=== PATIENT | female | born 2000 | race Hispanic/Latino ===

== ENCOUNTER 2020-10-23 16:52 | Emergency (ER) | payer BC, SELFPAY ==
[2020-10-23 17:00] VITALS: BP 130/78; PULSE 73; RESP 20; TEMP 37; O2SAT 100
[2020-10-23 17:31] LABS: Basophils Percent Auto 0.5 % (0.2-1.2); Eosinophils Absolute Auto 0.1 K/mm3 (0-0.3); Hematocrit 40.5 % (37.0-47.0); Hemoglobin 13.6 g/dL (12.0-15.0); Immature Granulocyte Absolute 0.03 K/mm3 (0.00-0.031); Immature Granulocyte Percent A 0.3 % (0-0.5); Lymphocytes Absolute Auto 1.76 K/mm3 (0.9-3.2); Lymphocytes Percent Auto 20.2 % (18.3-44.2); Mean Corpuscular HGB Conc 33.6 g/dl (32-36); Mean Corpuscular Hemoglobin 31.3 pg (26-34); Mean Corpuscular Volume 93.1 fl (80-100); Mean Platelet Volume 8.6 fl (7.4-10.4); Monocytes Absolute Auto 0.5 K/mm3 (0.1-0.6); Monocytes Percent Auto 6.1 % (2.6-8.5); Neutrophils Absolute Auto 6.3 K/mm3 (1.3-6.7); Neutrophils Percent Auto 71.9 % (45.5-73.1); Platelet Count Result 235 k/mm3 (150-375); Red Blood Count 4.35 M/mm3 (4.2-5.4); Red Cell Distribution Width 12.5 % (11.5-14.5); White Blood Count 8.7 K/mm3 (4.5-10.0)
[2020-10-23 17:36] LABS: Add Urine Microscopic? YES; Appearance Urine Clear (Clear); Bacteria Urine Trace /hpf; Bilirubin Urine Negative (Negative); Blood Urine 3+ (Negative); Color Urine Yellow (Yellow); Glucose Urine UA Negative (Negative); Ketones Urine Negative (Negative); Leukocyte Esterase Ur 2+ LEU/UL (Negative); Mucus Urine Rare /lpf; Nitrate Urine Negative (Negative); Protein Urine Negative (Negative); RBC Urine >75 /hpf (0-2); Specific Grav Ur 1.019 (1.001-1.035); Squamous Epithelial Cell Urine Rare /hpf (Few)
[2020-10-23 17:41] LABS: Alanine Aminotransferase 22 U/L (4-35); Albumin Level 4.7 g/dL (3.5-5.1); Alkaline Phosphatase 73 U/L (38-126); Anion Gap 8 mmol/L (8-16); Aspartate Amino Transferase 35 U/L (14-36); Bilirubin,Total 0.8 mg/dL (0.2-1.3); Blood Urea Nitrogen 10 mg/dL (7-17); Calcium 9.5 mg/dL (8.4-10.2); Carbon Dioxide 29 mmol/L (22-30); Chloride 101 mmol/L (98-107); Estimated CRCL calculation 110 ml/min; Estimated Glomerular Filt Rate > 60; Glucose 93 mg/dL (65-105); Lipase 87 U/L (23-300); Sodium 138 mmol/L (137-145)
[2020-10-23 21:01] VITALS: BP 150/101; PULSE 68; RESP 18; TEMP 36.7; O2SAT 100
--- NOTE | 2020-10-23 22:10 | ED.GENADULT ---
HPI - General Adult General Chief complaint: Urogenital-Female Stated complaint: vaginal pain/vb Time Seen by Provider: 10/23/20 20:59 Source: patient and RN notes reviewed Mode of arrival: ambulatory Limitations: no limitations History of Present Illness HPI narrative: This is a 20 year old female who presents for evaluation vaginal bleeding and pelvic pain. Patient states she thought she was so she came to ER when she developed vaginal bleeding today. Her last menstrual period was October 01. She developed white discharge and pelvic discomfort 2 days ago. She developed vaginal bleeding this morning. She reports she thought she was passing tissue and clots. She also reports 2 weeks of brest tenderness. She denies taking a test for her concern. Related Data Allergies Allergy/AdvReac Type Severity Reaction Status Date / Time morphine AdvReac Hives Verified 10/23/20 21:05 Review of Systems Review of Systems: All systems reviewed & are unremarkable except as noted in HPI and below Constitutional: Constitutional: Denies chills and Denies fever(s) Cardiovascular: Cardiovascular: Denies chest pain Respiratory: Respiratory: Denies dyspnea Gastrointestinal: Gastrointestinal: Reports abdominal pain, Denies diarrhea, Denies nausea and Denies vomiting Genitourinary: Genitourinary: Reports dysuria, Reports pelvic pain and Reports vaginal discharge PMF Past Medical History Medical History (Updated 10/24/20 @ 00:00 by Nicki Gaviria) Ovarian cyst Surgical History Surgical History (Updated 10/23/20 @ 22:11 by Renetta Chapman MD) No pertinent past surgical history Social History Social History (Updated 10/23/20 @ 22:11 by Renetta Chapman MD) Smoking status: Never smoker Gender identity (if verbalized by the patient): Female Exam Const: General: no acute distress and alert Orientation/consciousness: patient oriented x3 Eyes: EOM: EOMs intact bilaterally Resp: Effort & Inspection: normal respiratory effort and no retractions Auscultation: clear to auscultation bilaterally Cardio: Rate: regular rate Rhythm: regular rhythm Heart sounds: no murmurs GI: GI Palp: Yes Soft to palpation, Yes Tenderness to palpation present (GI) (suprapubic ) and No Guarding due to palpation present (GI) Auscultation: normal bowel sounds : Speculum Exam - Cervix: normal appearance of the cervix and Cervical os closed Other: dark blood in vault, no clots Skin: General skin exam: normal color Rashes: no rashes Neuro: General: patient oriented x3 and moves all extremities Extrem: General: normal to inspection and no pedal edema Psych: Mental Status: mental status grossly normal Affect: normal affect Course Reevaluation(s) Reevaluation #1: I spoke with patient about labs. test is negative. She understands. She will be treated for UTI Date: 10/23/20 Time: 22:50 Vital Signs Vital signs: Vital Signs Temperature 98.6 F 10/23/20 17:00 Pulse Rate 73 10/23/20 17:00 Respiratory Rate 20 10/23/20 17:00 Blood Pressure 130/78 10/23/20 17:00 Pulse Oximetry 100 10/23/20 17:00 Temperature 98.1 F 10/23/20 21:01 Pulse Rate 68 10/23/20 23:37 Respiratory Rate 18 10/23/20 23:37 Blood Pressure 112/70 10/23/20 23:37 Pulse Oximetry 100 10/23/20 23:37 Medical Decision Making Vital Signs Vital Signs: Vital Signs Temperature 98.6 F 10/23/20 17:00 Pulse Rate 73 10/23/20 17:00 Respiratory Rate 20 10/23/20 17:00 Blood Pressure 130/78 10/23/20 17:00 Pulse Oximetry 100 10/23/20 17:00 Temperature 98.1 F 10/23/20 21:01 Pulse Rate 68 10/23/20 23:37 Respiratory Rate 18 10/23/20 23:37 Blood Pressure 112/70 10/23/20 23:37 Pulse Oximetry 100 10/23/20 23:37 Lab Data Lab results reviewed: Yes I reviewed the patient's lab results. Result diagrams: 10/23/20 17:16 10/23/20 17:16 Labs: La
[2020-10-23 22:47] VITALS: BP 134/83; PULSE 80; O2SAT 99
[2020-10-23 23:37] VITALS: BP 112/70; PULSE 68; RESP 18; O2SAT 100
== END 2020-10-23 23:38 | disposition home or self-care (01) ==
PROVIDERS: Emergency Medicine; Emergency Provider General Practice
DX: N39.0 Urinary tract infection, site not specified (principal); N94.6 Dysmenorrhea, unspecified; N93.9 Abnormal uterine and vaginal bleeding, unspecified
CPT/HCPCS: 36415; 80053; 81001; 81025; 83690; 85025; 87070; 87086; 87491; 87591; 87808; 99284